=== PATIENT | female | born 1995 | race Caucasian/White ===

== ENCOUNTER 2018-03-09 01:41 | Emergency (ER) | payer OTHER | END 2018-03-09 02:45 | disposition home or self-care (01) | LOC: FTE 01:41 | DX: S20.212A Contusion of left front wall of thorax, initial encounter (principal); L72.9 Follicular cyst of the skin and subcutaneous tissue, unspecified; F17.210 Nicotine dependence, cigarettes, uncomplicated; W22.8XXA Striking against or struck by other objects, initial encounter; Y92.9 Unspecified place or not applicable | CPT/HCPCS: 99282; Z7502 ==